=== PATIENT | male | born 1980 | race Caucasian/White ===

== ENCOUNTER 2022-01-31 19:04 | Emergency (ER) | payer BC, SELFPAY ==
--- NOTE | ~2022-01-31 | US_ITS ---
EXAMINATION: US SCROTUM CLINICAL INFORMATION: Left scrotal swelling pain. COMPARISON: None TECHNIQUE: A sonogram of the scrotum was performed assessing bueno-scale appearance and color Doppler flow. Spectral Doppler analysis of the arterial and venous flow were performed in the testes bilaterally. FINDINGS: RIGHT: Right testicle measures 4.4 x 1.9 x 3.2 cm, volume 13.9 mL. No focal testicular parenchymal lesions are visualized. Spectral Doppler analysis of the arterial and venous flow is normal in the right testis. Right epididymal head is normal in size. Small volume right-sided hydrocele. Right epididymal Doppler flow is increased. There is an incidental small appendix testes at the right testicle at the upper pole. LEFT: Left testicle measures 3.3 x 2.9 x 2.8 cm, volume 14.4 mL. No focal testicular parenchymal lesions are visualized. Spectral Doppler analysis of the arterial and venous flow is normal in the left testis. Left epididymal head is enlarged and heterogeneous. Is increased vascular flow in the left epididymal head. There is a small to moderate volume left sided hydrocele. There is thickening of the left scrotal wall. US/US scrotum doppler IMPRESSION: 1. Normal right and left testicle. No evidence of testicular torsion. 2. Thickened left epididymal head with hyperemia consistent with epididymitis. 2. Left-sided hydrocele with thickened edematous left scrotal wall.
[2022-01-31 19:07] VITALS: BP 195/113; PULSE 94; RESP 18; TEMP 36.2; O2SAT 97; BMI 38.6
[2022-01-31] MEDS: Ketorolac Tromethamine 60 MG/2 ML VIAL IM (20:32)
[2022-01-31 20:38] LABS: Appearance Urine HAZY; Color Urine YELLOW; Glucose Urine UA 100 MG/DL (NEG); Leukocyte Esterase Urine NEG (NEG); Nitrite Urine NEG (NEG); Specific Gravity - Urine 1.025 (1.005-1.025); UACC Culture Trigger NO; Urine Blood 2+ (NEG); Urine Ketones NEG (NEG); Urine Protein 3+ MG/DL (NEG-TRACE)
--- NOTE | 2022-01-31 20:39 | ED.MALEGU ---
HPI - Male Genitourinary General Chief complaint: Urogenital-Male Stated complaint: Swollen Testicle Time Seen by Provider: 01/31/22 20:07 Source: patient Mode of arrival: ambulatory Limitations: no limitations History of Present Illness HPI Narrative: 41-year-old male with a history of high blood pressure and obstructive sleep apnea here with reports of left testicular pain and swelling since yesterday. Patient denies any urinary symptoms, no back pain, no abdominal pain, no fevers or chills. He denies any injury or trauma. He is sexually active with 1 female partner. They do not use any contraception Related Data Previous Rx's Medication Instructions Recorded doxycycline monohydrate 100 mg 100 mg PO BID #20 tab 01/31/22 tablet Allergies Allergy/AdvReac Type Severity Reaction Status Date / Time No Known Allergies Allergy Verified 01/31/22 20:18 Review of Systems Review of Systems: Yes all other systems are reviewed and are negative Constitutional: Constitutional: Reports no additional constitutional complaints, Denies body ache(s), Denies chills, Denies fever(s), Denies headache(s) and Denies weakness Eyes: Eyes: Reports no additional eye complaints and Denies change in vision ENT: Reports system reviewed and no additional complaints, except as documented, Denies dizziness, Denies headache(s), Denies nasal congestion, Denies nasal discharge and Denies neck pain Cardiovascular: Cardiovascular: Reports no additional cardiovascular complaints, Denies chest pain, Denies leg edema and Denies dyspnea Respiratory: Respiratory: Reports no additional respiratory complaints, Denies cough and Denies dyspnea Gastrointestinal: Gastrointestinal: Reports no additional gastrointestinal complaints, Denies abdominal pain, Denies diarrhea, Denies nausea and Denies vomiting Genitourinary: Genitourinary: Denies hematuria, Denies dysuria, Denies flank pain, Denies penile discharge, Reports scrotal swelling, Reports testicular pain and Denies urinary incontinence Musculoskeletal: Musculoskeletal: Reports no additional musculoskeletal complaints, Denies back pain, Denies arthralgias, Denies joint swelling, Denies neck pain, Denies numbness and Denies tingling Integumentary/Breasts: Skin/Breast: Reports system reviewed and no additional complaints, except as docu and Denies rash Neurologic: Reports system reviewed and no additional complaints, except as documented, Denies Abnormal speech present, Denies dizziness, Denies headache(s), Denies numbness, Denies tingling and Denies weakness PMFSH Past Medical History Attestation statement: The following information was validated with the patient. Source: old records reviewed and nursing notes reviewed Social History Social History Advance Directives: No Advance Directives Information Provided: No Physical Exam Vital Signs: Vital Signs: Last Vital Signs Temp 97.1 F 01/31/22 19:07 Pulse 94 01/31/22 19:07 Resp 18 01/31/22 19:07 BP 195/113 H 01/31/22 19:07 Pulse Ox 97 01/31/22 19:07 BMI result Body Mass Index 38.6 Const: General: cooperative, healthy appearing, comfortable and no acute distress Orientation/consciousness: patient oriented x3 Limitations: no limitations HEENT: Head: Yes normal to inspection Ears: hearing grossly normal bilaterally General nose exam: Normal external nose present Face and sinus: Yes normal facial exam Mouth: Normal oral and palatal mucosa present Throat: Yes posterior oropharynx normal Eyes: General: appearance normal, both eyes and all related structures Pupils: Equal, round and reactive pupils present Neck: Neck: Yes normal visual inspection Chest: Chest palpation & inspection: normal inspection of the chest Resp: Effort & Inspection: normal respiratory effort Auscultation: clear to auscultation bilaterally Cardio: Rate: regular rate Rhythm: regular rhythm Peripheral pulses: Peripheral pulses 2+ throughout GI: Inspection: Yes normal to inspection Palpation (GI): Soft to palpation and nontender Auscultation: normal bowel sounds : Other: Destiney miller chaperoned Penis: normal penis Meatus: meatus normal Scrotum: scrotum normal Testes: testicular swelling on the left and testicular tenderness on the left Back/Spine/Pelvis: Thoracic/Lumbar Spine: thoracic and lumbar spine normal to inspection Skin: General skin exam: no rashes or lesions noted Neuro: General: patient oriented x3, no focal motor deficits and normal sensation to monofilament Cranial nerves: Yes Equal, round and reactive pupils present Cognition (Neuro): normal cognition Speech: No Abnormal speech present Gait exam (Neuro): Normal gait present Motor exam (neuro): 5/5 motor strength present throughout Extrem: General: Yes normal to inspection Course Course Course Narrative: 41-year-old male here with left testicular pain and swelling since last night. Will send UA, CT NG, obtain testicular ultrasound Reevaluation(s) Reevaluation #1: Ultrasound consistent with epididymitis. Negative for torsion. Patient treated with ceftriaxone 500 mg IM. Will send home with course of doxycycline. Patient is noted to be hypertensive. He is asymptomatic. He tells me he normally takes his blood pressure medication at night and plan to take this when he gets home. Reviewed worrisome signs and symptoms of when to return to the emergency department. Comfortable discharge home. Time: 21:40 MDM - Male Genitourinary MDM Narrative Medical decision making narrative: Epididymitis, testicular torsion Medical Records Attestation: I reviewed the patient's medical records. Lab Data Attestation: I reviewed the patient's lab results. Labs: Lab Results 01/31/22 Range/Units 20:27 Urine Color YELLOW Urine Appearance HAZY Urine pH 6.0 (5.0-8.0) Ur Specific [place] 1.025 (1.005-1.025) Urine Protein 3+ H (NEG-TRACE) MG/DL Urine Glucose (UA) 100 H (NEG) MG/DL Urine Ketones NEG (NEG) MG/DL Urine Blood 2+ H (NEG) Urine Nitrite NEG (NEG) Ur Leukocyte Esterase NEG (NEG) Urine RBC 10-14 H (0) /HPF Urine WBC 10-14 H (0-4) /HPF Urine WBC Clumps NOTED Ur Squamous Epith Cells 1+ /LPF Urine Bacteria TRACE /LPF Hyaline Casts 0-2 /LPF Granular Casts 0-2 /LPF Urine Mucus 2+ /LPF Imaging Data Testicular ultrasound: Attestation: I personally reviewed and interpreted this imaging study as follows: Radiologist's impression: FINDINGS: RIGHT: Right testicle measures 4.4 x 1.9 x 3.2 cm, volume 13.9 mL. No focal testicular parenchymal lesions are visualized. Spectral Doppler analysis of the arterial and venous flow is normal in the right testis. Right epididymal head is normal in size. Small volume right-sided hydrocele. Right epididymal Doppler flow is increased. There is an incidental small appendix testes at the right testicle at the upper pole. LEFT: Left testicle measures 3.3 x 2.9 x 2.8 cm, volume 14.4 mL. No focal testicular parenchymal lesions are visualized. Spectral Doppler analysis of the arterial and venous flow is normal in the left testis. Left epididymal head is enlarged and heterogeneous. Is increased vascular flow in the left epididymal head. There is a small to moderate volume left sided hydrocele. There is thickening of the left scrotal wall. US/US scrotum doppler IMPRESSION: ? 1. Normal right and left testicle. No evidence of testicular torsion. 2. Thickened left epididymal head with hyperemia consistent with epididymitis. 2. Left-sided hydrocele with thickened edematous left scrotal wall. Discharge Plan Discharge Clinical Impression: Epididymitis Patient Disposition: Home, Self-Care Instructions: Epididymitis (ED) Additional Instructions: Elevate the scrotum. You may apply ice. Start antibiotics tomorrow Motrin or Tylenol for pain as needed Your blood pressure was elevated today. Please follow-up for repeat blood pressure check Prescriptions: New doxycycline monohydrate 100 mg tablet 100 mg PO BID Qty: 20 0RF Referrals: Mia Lopez NP [Primary Care Provider] - 1 week (for persistent symptoms )
[2022-01-31 20:55] LABS: Bacteria Urine TRACE /LPF; Granular Casts Urine 0-2 /LPF; Hyaline Casts Urine 0-2 /LPF; Mucus Urine 2+ /LPF; Squamous Epithelial Cell Urine 1+ /LPF; UACC CULT YES; WBC Clumps Urine NOTED
[2022-01-31] MEDS: cefTRIAXone sodium 500 MG, Lidocaine HCl 1 % MPF 1 ML IM (22:08)
[2022-02-01 07:17] LABS: CT PCR DETECTED (Not Detect.); NG PCR NOT DETECTED (Not Detect.)
== END 2022-01-31 22:16 | disposition home or self-care (01) ==
PROVIDERS: Nurse Practitioner Family; Emergency Provider Emergency Medicine; PCP Nurse Practitioner Adult Health
DX: N45.1 Epididymitis (principal); N50.812 Left testicular pain; I10 Essential (primary) hypertension
CPT/HCPCS: 81001; 87086; 87491; 87591; 93975; 96372; 99283; 99284; J0696; J1885